=== PATIENT | female | born 1965 | race Caucasian/White ===

== ENCOUNTER 2024-01-20 18:26 | Emergency (ER) | payer OTHER, BC ==
[2024-01-20 18:34] VITALS: BP_SYST 118; PULSE 85; RESP 18; TEMP 98.3; O2SAT 98
[2024-01-20 20:15] VITALS: BP_SYST 123; PULSE 73; RESP 18; TEMP 97.6; O2SAT 98
== END 2024-01-20 20:15 | disposition home or self-care (01) ==
LOC: SED 18:26
DX: L72.8 Other follicular cysts of the skin and subcutaneous tissue (principal); Z88.2 Allergy status to sulfonamides
CPT/HCPCS: 99283